=== PATIENT | female | born 1970 | race Two or more races ===

== ENCOUNTER → 2016-05-12 | Outpatient (CLI) | payer OTHER ==
[~2016-05-12] MED LIST: ALBU17IN INH; ANUS2.5C2 TOP; BUSP1TAB PO; DOCU10CA PO; FERR325T3 PO; METO25TAB PO; MOTR200T44 PO; OMEP20CA3 PO; ONDA1TAB15 PO; PRENATAL VITAMIN PO; PULM90IN INH; TYLE325T5 PO; VITAPRTA PO
--- NOTE | 2016-05-12 14:56 | REP ---
LEFT ANKLE SERIES: Four views of the left ankle performed. There is no acute fracture or dislocation. The ankle mortise is anatomic. There is mild inferior and posterior calcaneal spurring. IMPRESSION: No acute fracture or dislocation. Signed by Franki Bliss MD 05/12/2016 04:41 P
== END ==
LOC: M LRY 13:53
PROVIDERS: ATTEND Nurse Practitioner Family
DX: M25.572 Pain in left ankle and joints of left foot (principal)

== ENCOUNTER 2016-07-18 16:11 | Emergency (ER) | payer OTHER ==
[~2016-07-18] VITALS: Ht 160 cm; Wt 73.0 kg
[2016-07-18] MEDS ORDERED: NEXAVAR PO (16:25)
[2016-07-18] MEDS ORDERED: CLAR10CA3 PO (16:25)
[2016-07-18] MEDS ORDERED: BUSP15TA47 PO (16:25)
[2016-07-18] MEDS ORDERED: PROT1TAB2 PO (16:25)
[2016-07-18] MEDS ORDERED: DIFL200T PO (16:25)
[2016-07-18] MEDS ORDERED: ROXI1TAB2 PO (16:25)
[2016-07-18] MEDS ORDERED: K-TA1TAB PO (16:25)
[2016-07-18] MEDS ORDERED: PHEN1SUP6 PO (16:25)
[2016-07-18] MEDS ORDERED: ACYC200CA PO (16:25)
[2016-07-18] MEDS ORDERED: LISI2.5T3 PO (16:25)
[2016-07-18] MEDS ORDERED: LEVO100T5 PO (16:25)
[2016-07-18] MEDS ORDERED: IBUPROFEN 800 MG TAB PO ONE (16:45)
[2016-07-18] MEDS ORDERED: PHENAZOPYRIDINE 100 MG TAB PO ONE (16:45)
[2016-07-18 16:56] LABS: MICROSCOPIC INDICATED? MAN YES (NO)
[2016-07-18 16:57] LABS: CONTROL LINE UCG INT CTR LINE PRESENT
[2016-07-18 16:58] LABS: RBC, URINE 15-20 /hpf (0-3); SQUAMOUS EPITHELIAL CELL URINE SMALL AMOUNT /hpf (SMALL AMT); WBC, URINE 30-40 /hpf (0-3)
[2016-07-18 16:59] LABS: BACTERIA, URINE SMALL AMOUNT; HYALINE CAST, URINE NONE SEEN /lpf (0-1); MICROSCOPIC EXAM UNSPUN
[2016-07-18] MEDS ORDERED: CIPR500T89 PO (17:16)
[2016-07-18] MEDS ORDERED: PYRI200T5 PO (17:16)
[2016-07-18 17:20] VITALS: BP 115/68
[2016-07-18] MEDS ORDERED: CIPROFLOXACIN 500 MG TAB PO ONE (17:30)
== END 2016-07-18 17:32 | disposition home or self-care (01) ==
LOC: M ED 16:48
DX: N30.91 Cystitis, unspecified with hematuria (principal); R51 Headache

== ENCOUNTER → 2016-07-27 | Outpatient (CLI) | payer OTHER ==
[~2016-07-27] MED LIST changes: +ACYC200CA PO; +BUSP15TA47 PO; +CIPR500T89 PO; +CLAR10CA3 PO; +DIFL200T PO; +K-TA1TAB PO; +LEVO100T5 PO; +LISI2.5T3 PO; +NEXAVAR PO; +PHEN1SUP6 PO; +PROT1TAB2 PO; +PYRI200T5 PO; +ROXI1TAB2 PO
== END ==
LOC: M LAB 10:52
PROVIDERS: ATTEND Nurse Practitioner Family
DX: R79.89 Other specified abnormal findings of blood chemistry (principal)

== ENCOUNTER → 2016-07-27 | Outpatient (CLI) | payer OTHER | LOC: M RAD 10:55 | PROVIDERS: ATTEND Nurse Practitioner | DX: M54.9 Dorsalgia, unspecified (principal) ==

== ENCOUNTER 2016-07-29 13:35 | Emergency (ER) | payer OTHER ==
[~2016-07-29] VITALS: Ht 160 cm; Wt 71.4 kg
[~2016-07-29 13:35] MED LIST changes: +CIPR-249 PO; -CIPR500T89 PO; -ONDA1TAB15 PO; +ONDA4TAB5 PO; +PYRI1TAB5 PO; -PYRI200T5 PO
[2016-07-29] MEDS ORDERED: IBUPROFEN 600 MG TAB PO ONE (15:00)
--- NOTE | 2016-07-29 15:20 | REP ---
Right wrist four views: There is no fracture or dislocation. Mineralization joint spaces are normal. There are no calcifications or foreign bodies. Impression: Negative right wrist. Signed by Franki De Dios MD 07/29/2016 03:11 P
[2016-07-29 15:38] VITALS: BP 110/71
== END 2016-07-29 15:59 | disposition home or self-care (01) ==
LOC: M ED 15:43
DX: S63.501A Unspecified sprain of right wrist, initial encounter (principal); X50.1XXA Overexertion from prolonged static or awkward postures, initial encounter; Y92.092 Bedroom in other non-institutional residence as the place of occurrence of the external cause; Y93.89 Activity, other specified; Y99.9 Unspecified external cause status

== ENCOUNTER 2016-08-31 23:03 | Emergency (ER) | payer OTHER ==
[~2016-08-31] VITALS: Ht 160 cm; Wt 70.9 kg
[2016-08-31] MEDS ORDERED: LEVO88TA3 PO (23:24)
[2016-09-01] MEDS ORDERED: NS 1,000 ML IV ONE (02:45)
[2016-09-01 03:18] LABS: BASO % 0.7 % (0.0-1.0); EOS # 0.3 K/mm3 (0.0-0.50); EOS % 4.2 % (0.0-3.0); LARGE UNSTAINED CELL # 0.3 K/mm3 (0.0-0.4); LARGE UNSTAINED CELL % 3.8 % (0.0-4.0); LYMPH # 2.3 K/mm3 (1.5-4.5); LYMPH % 31.5 % (24.0-44.0); MEAN CORPUSCULAR HEMOGLOBIN 35.9 pg (27.0-33.0); MEAN CORPUSCULAR HGB CONC 34.8 g/dl (32.0-36.5); MEAN CORPUSCULAR VOLUME 103.1 fl (80.0-96.0); MONO # 0.9 K/mm3 (0.0-0.8); MONO % 13.8 % (0.0-5.0); PLATELET COUNT, AUTOMATED 165 k/mm3 (150-450); RED CELL DISTRIBUTION WIDTH 13.5 % (11.5-14.5); WHITE BLOOD COUNT 6.4 K/mm3 (4.0-10.0)
[2016-09-01 03:49] LABS: BLOOD UREA NITROGEN 9 MG/DL (7-18); CARBON DIOXIDE LEVEL 27 MEQ/L (21-32); CHLORIDE LEVEL 100 MEQ/L (98-107); CREATININE FOR GFR 0.75 MG/DL (0.55-1.02); GLOMERULAR FILTRATION RATE > 60.0 (>58); GLUCOSE, FASTING 88 MG/DL (70-105)
[2016-09-01 03:56] LABS: SODIUM LEVEL 139 MEQ/L (136-145)
[2016-09-01 03:58] LABS: ANION GAP 12 MEQ/L (8-16)
[2016-09-01] MEDS ORDERED: POTASSIUM CHLORIDE 10 MEQ SR TABLET PO ONE (04:30)
[2016-09-01 04:56] VITALS: BP 114/65
== END 2016-09-01 05:03 | disposition home or self-care (01) ==
LOC: M ED 23:03
DX: R19.7 Diarrhea, unspecified (principal); E87.6 Hypokalemia; K21.9 Gastro-esophageal reflux disease without esophagitis; Z87.891 Personal history of nicotine dependence; Z79.899 Other long term (current) drug therapy

== ENCOUNTER → 2016-09-16 | Outpatient (REF) | payer OTHER ==
[~2016-09-16] MED LIST changes: +LEVO88TA3 PO
== END ==
LOC: M LAB REF 14:40
PROVIDERS: ATTEND Nurse Practitioner
DX: R19.7 Diarrhea, unspecified (principal)

== ENCOUNTER 2016-12-28 19:36 | Emergency (ER) | payer OTHER ==
[~2016-12-28] VITALS: Ht 160 cm; Wt 69.1 kg
[2016-12-28] MEDS ORDERED: SERT50TA PO (19:48)
[2016-12-28] MEDS ORDERED: ZOFR20TA PO (19:48)
[2016-12-28 20:51] LABS: CONTROL LINE UCG INT CTR LINE PRESENT
[2016-12-28] MEDS ORDERED: MACR100C43 PO (21:06)
[2016-12-28 21:12] VITALS: BP 110/63
[2016-12-28] MEDS ORDERED: NITROFURANTOIN (MACROBID) 100 MG CAP PO ONE (21:15)
== END 2016-12-28 21:27 | disposition home or self-care (01) ==
LOC: M ED 19:36
DX: N39.0 Urinary tract infection, site not specified (principal); Z87.891 Personal history of nicotine dependence

== ENCOUNTER 2017-02-19 11:36 | Emergency (ER) | payer OTHER | END 2017-02-19 13:05 | disposition home or self-care (01) | LOC: M ED 11:36 | DX: J20.9 Acute bronchitis, unspecified (principal); I10 Essential (primary) hypertension; K21.9 Gastro-esophageal reflux disease without esophagitis; E03.9 Hypothyroidism, unspecified; M54.9 Dorsalgia, unspecified; F41.9 Anxiety disorder, unspecified; F42.9 Obsessive-compulsive disorder, unspecified; Z87.891 Personal history of nicotine dependence; Z79.899 Other long term (current) drug therapy | CPT/HCPCS: 71046 ==

== ENCOUNTER → 2017-04-22 | Outpatient (CLI) | payer OTHER ==
[2017-04-22 18:07] LABS: THYROID STIMULATING HORMONE 0.026 uIU/ML (0.358-3.740)
[2017-04-22 18:26] LABS: TOTAL 25(OH) VITAMIN D 11.9 NG/ML (30.0-100.0)
== END ==
LOC: M LAB 16:07
DX: E03.9 Hypothyroidism, unspecified (principal)
CPT/HCPCS: 84443

== ENCOUNTER 2017-07-02 20:26 | Emergency (ER) | payer OTHER, MEDICAID ==
[2017-07-02] MEDS: diphenhydrAMINE 25 MG CAP PO (22:53)
== END 2017-07-02 23:00 | disposition home or self-care (01) ==
LOC: M ED 20:26
DX: R59.9 Enlarged lymph nodes, unspecified (principal); S10.86XA Insect bite of other specified part of neck, initial encounter; W57.XXXA Bitten or stung by nonvenomous insect and other nonvenomous arthropods, initial encounter; Y92.9 Unspecified place or not applicable; Y93.9 Activity, unspecified; Y99.9 Unspecified external cause status; J30.2 Other seasonal allergic rhinitis; Z79.899 Other long term (current) drug therapy; Z88.6 Allergy status to analgesic agent
CPT/HCPCS: 99283

== ENCOUNTER → 2017-07-15 | Outpatient (REF) | payer OTHER, MEDICAID ==
[2017-07-15 18:28] LABS: FREE T4 1.27 NG/DL (0.76-1.46); THYROID STIMULATING HORMONE 0.103 uIU/ML (0.358-3.740)
[2017-07-16 10:43] LABS: THYROID PEROXIDASE ANTIBODY < 28.0 U/ML (<60.0)
== END ==
LOC: M LAB REF 17:35
DX: E03.9 Hypothyroidism, unspecified (principal)

== ENCOUNTER → 2017-10-18 | Outpatient (REF) | payer OTHER, MEDICAID ==
[2017-10-18 12:32] LABS: BASO % 0.6 % (0.0-1.0); EOS # 0.2 10^3/uL (0.0-0.50); EOS % 3.3 % (0.0-3.0); HEMATOCRIT 42.8 % (36.0-47.0); HEMOGLOBIN 14.4 g/dl (12.0-15.5); IMMATURE GRANULOCYTE % 0.2 % (0-3.0); LYMPH # 1.3 10^3/uL (1.5-4.5); LYMPH % 20.6 % (24.0-44.0); MEAN CORPUSCULAR HEMOGLOBIN 33.1 pg (27.0-33.0); MEAN CORPUSCULAR HGB CONC 33.6 g/dl (32.0-36.5); MEAN CORPUSCULAR VOLUME 98.4 fl (80.0-96.0); MONO # 0.7 10^3/uL (0.0-0.8); MONO % 10.6 % (0.0-5.0); NEUTROPHILS # 4.1 10^3/uL (1.8-7.7); NEUTROPHILS % 64.7 % (36.0-66.0); PLATELET COUNT, AUTOMATED 243 10^3/uL (150-450); RED BLOOD COUNT 4.35 10^6/uL (4.00-5.40); RED CELL DISTRIBUTION WIDTH 13.1 % (11.5-14.5); WHITE BLOOD COUNT 6.3 10^3/uL (4.0-10.0)
[2017-10-18 13:03] LABS: TOTAL 25(OH) VITAMIN D 21.6 NG/ML (30.0-100.0)
[2017-10-19 01:37] LABS: ESTIMATED AVERAGE GLUCOSE 94 MG/DL (60-110); HEMOGLOBIN A1c 4.9 %
== END ==
LOC: M LAB REF 12:16
DX: R53.83 Other fatigue (principal)

== ENCOUNTER 2017-11-20 17:29 | Emergency (ER) | payer OTHER, MEDICAID ==
[2017-11-20 18:27] LABS: KETONE, URINE AUTO RFX NEGATIVE (NEGATIVE); LEUKOCYTE ESTERASE UR AUTO RFX 3+ (NEGATIVE); MUCUS, URINE RFX SMALL (NEGATIVE); NITRITE, URINE AUTO RFX NEGATIVE (NEGATIVE); RBC, URINE AUTO RFX 53 /HPF (0-3); SPECIFIC GRAVITY UR AUTO RFX 1.016 (1.002-1.035); SQUAM EPITHELIAL CELL UR AURFX 4 /HPF (0-6); WBC, URINE AUTO RFX 133 /HPF (0-3)
[2017-11-20] MEDS: PHENAZOPYRIDINE 100 MG TAB PO (19:23)
[2017-11-20] MEDS: CIPROFLOXACIN 500 MG TAB PO (19:23)
== END 2017-11-20 19:24 | disposition home or self-care (01) ==
LOC: M ED 17:29
DX: N39.0 Urinary tract infection, site not specified (principal); I10 Essential (primary) hypertension; K21.9 Gastro-esophageal reflux disease without esophagitis
CPT/HCPCS: 73630

== ENCOUNTER 2017-12-05 22:21 | Emergency (ER) | payer OTHER ==
[2017-12-05] MEDS: METOCLOPRAMIDE INJ 10MG/2ML VIAL (J2765) IV (23:00)
[2017-12-05] MEDS: NS 1,000 ML IV (23:00)
[2017-12-05 23:33] LABS: BASO % 0.3 % (0.0-1.0); EOS # 0.2 10^3/uL (0.0-0.50); EOS % 1.2 % (0.0-3.0); HEMATOCRIT 52.8 % (36.0-47.0); HEMOGLOBIN 17.7 g/dl (12.0-15.5); IMMATURE GRANULOCYTE % 0.7 % (0-3.0); LYMPH % 15.8 % (24.0-44.0); MEAN CORPUSCULAR HGB CONC 33.5 g/dl (32.0-36.5); MEAN CORPUSCULAR VOLUME 98.5 fl (80.0-96.0); MONO # 0.8 10^3/uL (0.0-0.8); MONO % 5.8 % (0.0-5.0); NEUTROPHILS # 9.8 10^3/uL (1.8-7.7); NEUTROPHILS % 76.2 % (36.0-66.0); PLATELET COUNT, AUTOMATED 297 10^3/uL (150-450); RED BLOOD COUNT 5.36 10^6/uL (4.00-5.40); RED CELL DISTRIBUTION WIDTH 13.3 % (11.5-14.5); WHITE BLOOD COUNT 12.9 10^3/uL (4.0-10.0)
[2017-12-06 00:10] LABS: ALBUMIN 4.2 GM/DL (3.2-5.2); ALBUMIN/GLOBULIN RATIO 0.93 (1.00-1.93); ALKALINE PHOSPHATASE 77 U/L (45-117); ALT/SGPT 33 U/L (12-78); AMYLASE 65 U/L (25-115); ANION GAP 11 MEQ/L (8-16); AST/SGOT 38 U/L (7-37); BILIRUBIN,TOTAL 0.5 MG/DL (0.2-1.0); BLOOD UREA NITROGEN 12 MG/DL (7-18); CALCIUM LEVEL 8.9 MG/DL (8.5-10.1); CARBON DIOXIDE LEVEL 23 MEQ/L (21-32); CHLORIDE LEVEL 104 MEQ/L (98-107); CREATININE FOR GFR 0.82 MG/DL (0.55-1.30); GLOMERULAR FILTRATION RATE > 60.0 (>58); GLUCOSE, FASTING 89 MG/DL (70-100); LIPASE 118 U/L (73-393); POTASSIUM SERUM 3.8 MEQ/L (3.5-5.1); SODIUM LEVEL 138 MEQ/L (136-145); TOTAL PROTEIN 8.7 GM/DL (6.4-8.2)
[2017-12-06 00:45] LABS: APPEARANCE, URINE CLOUDY (CLEAR); BACTERIA, URINE AUTO 1+ (NEGATIVE); BILIRUBIN, URINE AUTO NEGATIVE (NEGATIVE); BLOOD, URINE BLOOD 1+ (NEGATIVE); COLOR, URINE YELLOW (YELLOW); GLUCOSE, URINE (UA) AUTO NEGATIVE (NEGATIVE); KETONE, URINE AUTO NEGATIVE (NEGATIVE); LEUKOCYTE ESTERASE, URINE AUTO 3+ (NEGATIVE); MUCUS, URINE LARGE (NEGATIVE); NITRITE, URINE AUTO NEGATIVE (NEGATIVE); PROTEIN, URINE AUTO 1+ mg/dL (NEGATIVE); RBC, URINE AUTO 9 /HPF (0-3); SQUAMOUS EPITHELIAL CELL UR AU 12 /HPF (0-6); TRANSITIONAL EPITHELIAL AUTO <1 /HPF; UROBILINOGEN, URINE AUTO 0.2 mg/dL (0.0-2.0); WBC, URINE AUTO 100 /HPF (0-3)
[2017-12-06] MEDS: CIPROFLOXACIN 500 MG TAB PO (01:30)
== END 2017-12-06 01:33 | disposition home or self-care (01) ==
LOC: M ED 12-06 01:33
DX: N39.0 Urinary tract infection, site not specified (principal); R11.2 Nausea with vomiting, unspecified; R19.7 Diarrhea, unspecified; I10 Essential (primary) hypertension; Z87.442 Personal history of urinary calculi; Z94.84 Stem cells transplant status; Z88.6 Allergy status to analgesic agent; Z88.2 Allergy status to sulfonamides; J30.2 Other seasonal allergic rhinitis; Z79.899 Other long term (current) drug therapy
CPT/HCPCS: J2765

== ENCOUNTER 2018-05-07 17:21 | Emergency (ER) | payer OTHER ==
[~2018-05-07] VITALS: Ht 157.5 cm; Wt 83.6 kg
[2018-05-07 17:21] VITALS: BP 117/63
[~2018-05-07 17:21] MED LIST changes: +ACYC1CAP20 PO; -ACYC200CA PO; +BENA25CA4 PO; +COMBAER6; +LEVO75TA4 PO; +LISI-1046 PO; -LISI2.5T3 PO; +MACR100C43 PO; +METO1TAB63 PO; -METO25TAB PO; +MORP-38 PO; +REGL10TA6 PO; +SERT-141 PO; +TRIA1CR80 TOP; +ZITHTAB PO; +ZOFR4TAB16 PO; +ZOLO50TA PO
[2018-05-07] MEDS ORDERED: diphenhydrAMINE 50 MG CAP PO ONE (18:00)
[2018-05-07] MEDS ORDERED: diphenhydrAMINE 25 MG CAP As Ordered ONE (18:03)
[2018-05-07] MEDS ORDERED: predniSONE 20 MG TAB PO ONE (18:30)
[2018-05-07] MEDS ORDERED: PRED20TA PO (19:11)
== END 2018-05-07 19:32 | disposition home or self-care (01) ==
LOC: M ED 17:21
DX: L23.89 Allergic contact dermatitis due to other agents (principal); L29.9 Pruritus, unspecified; L50.9 Urticaria, unspecified; I10 Essential (primary) hypertension; J45.909 Unspecified asthma, uncomplicated; E03.9 Hypothyroidism, unspecified; K21.9 Gastro-esophageal reflux disease without esophagitis; Z85.6 Personal history of leukemia; Z79.899 Other long term (current) drug therapy; J30.2 Other seasonal allergic rhinitis; Z88.2 Allergy status to sulfonamides; Z88.6 Allergy status to analgesic agent

== ENCOUNTER 2018-08-06 21:12 | Emergency (ER) | payer OTHER ==
[~2018-08-06] VITALS: Ht 157.5 cm; Wt 88.2 kg
[~2018-08-06 21:12] MED LIST changes: -OMEP20CA3 PO; +OMEP20CA4 PO; +PRED20TA PO
[2018-08-06] MEDS ORDERED: NAPROXEN 250 MG TAB PO ONE (23:30)
[2018-08-07] MEDS ORDERED: NAPR-837 PO (01:01)
[2018-08-07] MEDS ORDERED: CAPS0.022 TOP (01:01)
[2018-08-07 01:25] VITALS: BP 140/72
--- NOTE | 2018-08-07 07:29 | REP ---
Clinical: Right heel pain. Technique: Axial and lateral views of the left calcaneus. Findings: No acute fracture or dislocation. Lateral view demonstrates moderate calcaneal heal spur. No plantar calcifications are identified. Impression: Moderate calcaneal heal spur. Electronically Signed by Brayan Palumbo MD 08/07/2018 07:20 A
== END 2018-08-07 01:27 | disposition home or self-care (01) ==
LOC: M ED 21:12
DX: M72.2 Plantar fascial fibromatosis (principal); M77.32 Calcaneal spur, left foot; I10 Essential (primary) hypertension; J45.909 Unspecified asthma, uncomplicated; K21.9 Gastro-esophageal reflux disease without esophagitis; C95.91 Leukemia, unspecified, in remission; Z87.891 Personal history of nicotine dependence; Z88.2 Allergy status to sulfonamides; Z88.6 Allergy status to analgesic agent; Z79.899 Other long term (current) drug therapy; Z94.84 Stem cells transplant status

== ENCOUNTER → 2018-08-19 | Outpatient (REF) | payer OTHER ==
[~2018-08-19] MED LIST changes: +CAPS0.022 TOP; +NAPR-837 PO
[2018-08-19 19:19] LABS: APPEARANCE, URINE HAZY (CLEAR); BACTERIA, URINE AUTO 1+ (NEGATIVE); BASO # 0.1 10^3/uL (0.0-0.2); BASO % 0.6 % (0.0-1.0); BILIRUBIN, URINE AUTO NEGATIVE (NEGATIVE); BLOOD, URINE BLOOD NEGATIVE (NEGATIVE); COLOR, URINE YELLOW (YELLOW); EOS # 0.1 10^3/uL (0.0-0.50); EOS % 1.7 % (0.0-3.0); GLUCOSE, URINE (UA) AUTO NEGATIVE (NEGATIVE); HEMATOCRIT 44.6 % (36.0-47.0); HEMOGLOBIN 14.5 g/dl (12.0-15.5); KETONE, URINE AUTO NEGATIVE (NEGATIVE); LEUKOCYTE ESTERASE, URINE AUTO 1+ (NEGATIVE); LYMPH % 36.3 % (24.0-44.0); MEAN CORPUSCULAR HEMOGLOBIN 32.6 pg (27.0-33.0); MEAN CORPUSCULAR HGB CONC 32.5 g/dl (32.0-36.5); MEAN CORPUSCULAR VOLUME 100.2 fl (80.0-96.0); MONO # 0.9 10^3/uL (0.0-0.8); MONO % 11.2 % (0.0-5.0); NEUTROPHILS # 4.1 10^3/uL (1.8-7.7); NITRITE, URINE AUTO NEGATIVE (NEGATIVE); PLATELET COUNT, AUTOMATED 204 10^3/uL (150-450); PROTEIN, URINE AUTO NEGATIVE (NEGATIVE); RBC, URINE AUTO 2 /HPF (0-3); RED BLOOD COUNT 4.45 10^6/uL (4.00-5.40); SPECIFIC GRAVITY URINE AUTO 1.016 (1.002-1.035); SQUAMOUS EPITHELIAL CELL UR AU 5 /HPF (0-6); UROBILINOGEN, URINE AUTO 0.2 mg/dL (0.0-2.0); WBC, URINE AUTO 75 /HPF (0-3); WHITE BLOOD COUNT 8.1 10^3/uL (4.0-10.0)
[2018-08-19 19:27] LABS: ALBUMIN 4.1 GM/DL (3.2-5.2); ALT/SGPT 27 U/L (12-78); BILIRUBIN,TOTAL 0.5 MG/DL (0.2-1.0); BLOOD UREA NITROGEN 13 MG/DL (7-18); CALCIUM LEVEL 8.8 MG/DL (8.5-10.1); CARBON DIOXIDE LEVEL 27 MEQ/L (21-32); CHLORIDE LEVEL 104 MEQ/L (98-107); CHOLESTEROL LEVEL 257 MG/DL (<200); CHOLESTEROL RISK RATIO 6.425 (<5); CREATININE FOR GFR 0.85 MG/DL (0.55-1.30); FREE T4 0.97 NG/DL (0.76-1.46); GLOMERULAR FILTRATION RATE > 60.0 (>58); GLUCOSE, FASTING 83 MG/DL (70-100); HDL CHOLESTEROL 40 MG/DL (>40); NON-HDL-C 217 MG/DL; POTASSIUM SERUM 4.2 MEQ/L (3.5-5.1); SODIUM LEVEL 140 MEQ/L (136-145); THYROID STIMULATING HORMONE 0.326 uIU/ML (0.358-3.740); TRIGLYCERIDES LEVEL 455 MG/DL (<150)
[2018-08-19 19:28] LABS: TOTAL 25(OH) VITAMIN D 19.7 NG/ML (30.0-100.0); VITAMIN B12 LEVEL 369 PG/ML
[2018-08-19 19:29] LABS: FOLATE 9.8 NG/ML
[2018-08-19 20:30] LABS: HEMOGLOBIN A1c 5.6 %
[2018-08-23 00:06] LABS: Lyme Disease IgG/IgM Antibodie <0.91 ISR (0.00-0.90); Lyme Disease IgM Ab Quantitati <0.80 index (0.00-0.79)
== END ==
LOC: M LAB REF 18:40
PROVIDERS: ATTEND Family Medicine
DX: R20.2 Paresthesia of skin (principal); Z13.228 Encounter for screening for other metabolic disorders

== ENCOUNTER 2018-11-06 13:03 | Emergency (ER) | payer OTHER ==
[~2018-11-06] VITALS: Ht 157.5 cm; Wt 84.6 kg
[~2018-11-06 13:03] MED LIST changes: -MORP-38 PO; +MORP-69 PO; +OMEP1CAP73 PO; -OMEP20CA4 PO; +ONDA-83 PO; -ONDA4TAB5 PO
[2018-11-06] MEDS ORDERED: KETO10TAB PO (15:19)
[2018-11-06] MEDS ORDERED: ROBA750T4 PO (15:19)
[2018-11-06] MEDS ORDERED: CLEO300C2 PO (15:19)
[2018-11-06 15:34] VITALS: BP 147/86
== END 2018-11-06 15:35 | disposition home or self-care (01) ==
LOC: M ED 13:03
DX: L08.9 Local infection of the skin and subcutaneous tissue, unspecified (principal); S10.96XA Insect bite of unspecified part of neck, initial encounter; W57.XXXA Bitten or stung by nonvenomous insect and other nonvenomous arthropods, initial encounter; M62.838 Other muscle spasm; Z79.899 Other long term (current) drug therapy; Z88.2 Allergy status to sulfonamides; Z88.6 Allergy status to analgesic agent

== ENCOUNTER 2018-12-08 15:31 | Emergency (ER) | payer OTHER ==
[~2018-12-08] VITALS: Ht 160 cm; Wt 87.7 kg
[2018-12-08 15:31] VITALS: BP 125/89
[~2018-12-08 15:31] MED LIST changes: +CLEO300C2 PO; +KETO10TAB PO; -OMEP1CAP73 PO; +OMEP20CA4 PO; -ONDA-83 PO; +ONDA4TAB5 PO; +ROBA750T4 PO
[2018-12-08] MEDS ORDERED: LORA-674 PO (15:37)
[2018-12-08 15:57] LABS: BASO # 0.1 10^3/uL (0.0-0.2); BASO % 0.9 % (0.0-1.0); EOS # 0.2 10^3/uL (0.0-0.5); EOS % 2.6 % (0.0-3.0); HEMATOCRIT 44.3 % (36.0-47.0); HEMOGLOBIN 14.7 g/dl (12.0-15.5); LYMPH # 2.3 10^3/uL (1.5-5.0); LYMPH % 28.5 % (24.0-44.0); MEAN CORPUSCULAR HEMOGLOBIN 32.2 pg (27.0-33.0); MEAN CORPUSCULAR HGB CONC 33.2 g/dl (32.0-36.5); MEAN CORPUSCULAR VOLUME 96.9 fl (80.0-96.0); MONO # 0.9 10^3/uL (0.0-0.8); MONO % 10.9 % (0.0-5.0); NEUTROPHILS # 4.6 10^3/uL (1.5-8.5); NEUTROPHILS % 56.5 % (36.0-66.0); PLATELET COUNT, AUTOMATED 238 10^3/uL (150-450); RED BLOOD COUNT 4.57 10^6/uL (4.00-5.40); WHITE BLOOD COUNT 8.1 10^3/uL (4.0-10.0)
[2018-12-08] MEDS ORDERED: ACETAMINOPHEN 500 MG TAB PO ONE (16:15)
[2018-12-08] MEDS ORDERED: AUGMENTIN 875 MG TAB PO ONE (16:15)
[2018-12-08 16:20] LABS: ALT/SGPT 21 U/L (12-78); BILIRUBIN,TOTAL 0.6 MG/DL (0.2-1.0); BLOOD UREA NITROGEN 13 MG/DL (7-18); CALCIUM LEVEL 9.6 MG/DL (8.5-10.1); CARBON DIOXIDE LEVEL 30 MEQ/L (21-32); CHLORIDE LEVEL 102 MEQ/L (98-107); CREATININE FOR GFR 0.91 MG/DL (0.55-1.30); GLOMERULAR FILTRATION RATE > 60.0 (>58); GLUCOSE, FASTING 128 MG/DL (70-100); POTASSIUM SERUM 4.3 MEQ/L (3.5-5.1); SODIUM LEVEL 138 MEQ/L (136-145); TOTAL PROTEIN 7.3 GM/DL (6.4-8.2)
[2018-12-08] MEDS ORDERED: OXYMETAZOLINE NASAL SPRAY (AFRIN) ONE (16:30)
[2018-12-08] MEDS ORDERED: AFRI0.058 (16:41)
[2018-12-08] MEDS ORDERED: AUGM875T28 PO (16:41)
--- NOTE | 2018-12-08 21:44 | ECGEPIP ---
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
== END 2018-12-08 16:47 | disposition home or self-care (01) ==
LOC: M ED 15:31
DX: H66.93 Otitis media, unspecified, bilateral (principal); R42 Dizziness and giddiness; I10 Essential (primary) hypertension; J45.909 Unspecified asthma, uncomplicated; K21.9 Gastro-esophageal reflux disease without esophagitis; E03.9 Hypothyroidism, unspecified; F41.9 Anxiety disorder, unspecified; F32.9 Major depressive disorder, single episode, unspecified; F42.9 Obsessive-compulsive disorder, unspecified; Z88.2 Allergy status to sulfonamides; Z88.6 Allergy status to analgesic agent; Z79.899 Other long term (current) drug therapy

== ENCOUNTER 2019-02-18 14:12 | Emergency (ER) | payer OTHER ==
[~2019-02-18] VITALS: Ht 157.5 cm; Wt 82.7 kg
[~2019-02-18 14:12] MED LIST changes: +AFRI0.058; +AUGM875T28 PO; +LORA-674 PO; +OMEP1CAP73 PO; -OMEP20CA4 PO; +ONDA-83 PO; -ONDA4TAB5 PO
[2019-02-18 14:46] LABS: BASO # 0.1 10^3/uL (0.0-0.2); BASO % 0.6 % (0.0-1.0); EOS # 0.2 10^3/uL (0.0-0.5); EOS % 2.7 % (0.0-3.0); HEMATOCRIT 49.3 % (36.0-47.0); HEMOGLOBIN 15.8 g/dl (12.0-15.5); LYMPH # 2.8 10^3/uL (1.5-5.0); LYMPH % 36.7 % (24.0-44.0); MEAN CORPUSCULAR HEMOGLOBIN 31.5 pg (27.0-33.0); MEAN CORPUSCULAR VOLUME 98.2 fl (80.0-96.0); MONO # 0.7 10^3/uL (0.0-0.8); MONO % 9.6 % (0.0-5.0); NEUTROPHILS # 3.9 10^3/uL (1.5-8.5); NEUTROPHILS % 49.9 % (36.0-66.0); PLATELET COUNT, AUTOMATED 250 10^3/uL (150-450); RED BLOOD COUNT 5.02 10^6/uL (4.00-5.40); WHITE BLOOD COUNT 7.7 10^3/uL (4.0-10.0)
--- NOTE | 2019-02-18 14:52 | REP ---
CHEST, SINGLE VIEW: There is no evidence of acute infiltrate. No pleural effusion is seen. The heart is normal in size. The mediastinal silhouette is unremarkable. The visualized osseous structures are intact. IMPRESSION: No acute pulmonary disease. Electronically Signed by Franki Bliss MD 02/18/2019 04:07 P
[2019-02-18 15:20] LABS: CK-MB VALUE MASS 1.3 NG/ML (<3.6); CPK CREATINE PHOSPHOKINASE 181 U/L (26-192); MB/CK RELATIVE INDEX 0.72 (< OR =4); THYROID STIMULATING HORMONE 0.578 uIU/ML (0.358-3.740); TROPONIN I < 0.02 NG/ML (< 0.10)
[2019-02-18 17:58] LABS: CK-MB VALUE MASS < 1.0 NG/ML (<3.6); CPK CREATINE PHOSPHOKINASE 150 U/L (26-192); MB/CK RELATIVE INDEX 0.67 (< OR =4); TROPONIN I < 0.02 NG/ML (< 0.10)
[2019-02-18] MEDS ORDERED: PANTOPRAZOLE 40MG TAB (PROTONIX) PO ONE (19:00)
[2019-02-18] MEDS ORDERED: GI COCKTAIL 50ML BTL(HYOSCYAMINE/MAALOX/LIDOCAINE VISCOUS)(1:3:1) PO ONE (19:00)
[2019-02-18 19:16] VITALS: BP 97/59
[2019-02-18 19:22] LABS: ALBUMIN 3.7 GM/DL (3.2-5.2); ALT/SGPT 27 U/L (12-78); BILIRUBIN,DIRECT 0.1 MG/DL (0.0-0.2); BILIRUBIN,TOTAL 0.7 MG/DL (0.2-1.0); LIPASE 147 U/L (73-393); TOTAL PROTEIN 7.5 GM/DL (6.4-8.2)
--- NOTE | 2019-02-19 20:33 | ECGEPIP ---
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
--- NOTE | 2019-02-19 20:34 | ECGEPIP ---
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
== END 2019-02-18 20:25 | disposition home or self-care (01) ==
LOC: M ED 14:12
DX: R07.89 Other chest pain (principal); I10 Essential (primary) hypertension; K21.9 Gastro-esophageal reflux disease without esophagitis; I47.1 Supraventricular tachycardia; Z79.899 Other long term (current) drug therapy; Z79.890 Hormone replacement therapy; Z88.1 Allergy status to other antibiotic agents; Z88.2 Allergy status to sulfonamides; Z88.8 Allergy status to other drugs, medicaments and biological substances; J30.2 Other seasonal allergic rhinitis; Z87.891 Personal history of nicotine dependence

== ENCOUNTER 2019-11-21 07:50 | Emergency (ER) | payer OTHER ==
[~2019-11-21] VITALS: Ht 160 cm; Wt 97.3 kg
[~2019-11-21 07:50] MED LIST changes: -LISI-1046 PO; +LISI2.5T2 PO
[2019-11-21] MEDS ORDERED: BUSP15TA47 PO (08:08)
[2019-11-21] MEDS ORDERED: ZOLO100T PO (08:08)
[2019-11-21] MEDS ORDERED: HYDR-3363 (08:08)
[2019-11-21] MEDS ORDERED: LORA-674 (08:08)
[2019-11-21] MEDS ORDERED: D 50CAP2 (08:08)
[2019-11-21 08:51] LABS: BASO # 0.1 10^3/uL (0.0-0.2); BASO % 0.3 % (0.0-1.0); EOS # 0.2 10^3/uL (0.0-0.5); EOS % 1.3 % (0.0-3.0); HEMATOCRIT 43.8 % (36.0-47.0); HEMOGLOBIN 14.5 g/dl (12.0-15.5); LYMPH # 1.7 10^3/uL (1.5-5.0); LYMPH % 10.1 % (24.0-44.0); MEAN CORPUSCULAR HEMOGLOBIN 31.7 pg (27.0-33.0); MEAN CORPUSCULAR HGB CONC 33.1 g/dl (32.0-36.5); MEAN CORPUSCULAR VOLUME 95.6 fl (80.0-96.0); MONO # 1.8 10^3/uL (0.0-0.8); MONO % 10.6 % (0.0-5.0); NEUTROPHILS # 13.2 10^3/uL (1.5-8.5); NEUTROPHILS % 76.8 % (36.0-66.0); PLATELET COUNT, AUTOMATED 216 10^3/uL (150-450); RED BLOOD COUNT 4.58 10^6/uL (4.00-5.40); WHITE BLOOD COUNT 17.1 10^3/uL (4.0-10.0)
[2019-11-21 09:25] LABS: ALBUMIN 3.6 GM/DL (3.2-5.2); ALT/SGPT 13 U/L (12-78); BILIRUBIN,DIRECT < 0.1 MG/DL (0.0-0.2); BILIRUBIN,TOTAL 0.4 MG/DL (0.2-1.0); BLOOD UREA NITROGEN 10 MG/DL (7-18); CARBON DIOXIDE LEVEL 27 MEQ/L (21-32); CHLORIDE LEVEL 104 MEQ/L (98-107); CREATININE FOR GFR 0.89 MG/DL (0.55-1.30); GLOMERULAR FILTRATION RATE > 60.0 (>58); GLUCOSE, FASTING 121 MG/DL (70-100); LIPASE 148 U/L (73-393); POTASSIUM SERUM 4.2 MEQ/L (3.5-5.1); SODIUM LEVEL 138 MEQ/L (136-145); TOTAL PROTEIN 7.1 GM/DL (6.4-8.2)
--- NOTE | 2019-11-21 10:24 | REPVR ---
PROCEDURE INFORMATION: Exam: CT Abdomen And Pelvis Without Contrast Exam date and time: 11/21/2019 9:33 AM Age: 48 years old Clinical indication: Abdominal pain; Flank; Left; Additional info: L flank pain, urinary freq/urgency, R/O stone vs pyelo TECHNIQUE: Imaging protocol: Computed tomography of the abdomen and pelvis without contrast. Radiation optimization: All CT scans at this facility use at least one of these dose optimization techniques: automated exposure control; mA and/or kV adjustment per patient size (includes targeted exams where dose is matched to clinical indication); or iterative reconstruction. COMPARISON: CR Spine. Lumbosacral, complete 07/27/2016 11:23 AM FINDINGS: Liver: Diffuse fatty infiltration of the liver is present, with small patchy areas of focal fatty sparing around the gallbladder fossa. Gallbladder and bile ducts: Cholelithiasis is present, with no CT evidence of acute cholecystitis. The biliary ducts appear normal additionally. Pancreas: Normal. No ductal dilation. Spleen: Normal. No splenomegaly. Adrenals: Normal. No mass. Kidneys and ureters: Mild left obstructive uropathy is present with small 1-2 mm-sized proximal intraureteral calculi seen on image 69 of series 201 and questionably on images 73-76 of series 201, all of which are at the level of the mid-upper L4 vertebral body. The calculi may be at least partially-obstructing. No overt signs of acute pyelonephritis although this study is limited in this regard because of the lack of IV contrast. Stomach and bowel: Unremarkable. No obstruction. No mucosal thickening. Appendix: No evidence of appendicitis. Intraperitoneal space: Unremarkable. No free air. No significant fluid collection. Vasculature: Unremarkable. No abdominal aortic aneurysm. Lymph nodes: Unremarkable. No enlarged lymph nodes. Urinary bladder: The urinary bladder appears normal. Reproductive: An IUD is present within the uterus in apparent normal position. Bones/joints: Mild chronic degenerative discovertebral disease with endplate osteophytosis, diminished disc height and vacuum disc phenomenon is seen in the lumbar spine at L5/S1. Soft tissues: Unremarkable. IMPRESSION: 1. Mild left obstructive uropathy is present with small 1-2 mm-sized proximal intraureteral calculi seen on image 69 of series 201 and questionably on images 73-76 of series 201, all of which are at the level of the mid-upper L4 vertebral body. The calculi may be at least partially-obstructing. 2. No overt signs of acute pyelonephritis although this study is limited in this regard because of the lack of IV contrast. 3. The urinary bladder appears normal. 4. Cholelithiasis is present, with no CT evidence of acute cholecystitis. The biliary ducts appear normal additionally. 5. Diffuse fatty infiltration of the liver is present, with small patchy areas of focal fatty sparing around the gallbladder fossa. 6. Mild chronic degenerative discovertebral disease with endplate osteophytosis, diminished disc height and vacuum disc phenomenon is seen in the lumbar spine at L5/S1. 7. An IUD is present within the uterus in apparent normal position. Electronically signed by: Jonathan Valdez On 11/21/2019 10:24:21 AM
[2019-11-21 10:53] LABS: CHLAMYDIA DNA AMPLIFICATION NEGATIVE (NEGATIVE); GC DNA AMPLIFICATION NEGATIVE (NEGATIVE)
[2019-11-21] MEDS ORDERED: ACETAMINOPHEN 325 MG TAB PO ONE (11:15)
[2019-11-21] MEDS ORDERED: FLOM0.4C39 PO (11:16)
[2019-11-21 11:18] LABS: HEPATITIS B SURFACE ANTIBODY POSITIVE (POSITIVE)
[2019-11-21] MEDS ORDERED: MACR100C43 PO (11:20)
[2019-11-21] MEDS ORDERED: PYRI1TAB5 PO (11:22)
[2019-11-21 11:29] LABS: HEPATITIS B SURFACE ANTIGEN NEGATIVE (NEGATIVE)
[2019-11-21 11:57] LABS: HEPATITIS C VIRUS ABY INDEX 0.1 INDEX (<0.8)
[2019-11-21 11:58] LABS: HIV 1&2 SCREEN CENTAUR NEGATIVE (NEGATIVE)
[2019-11-21] MEDS ORDERED: LISINOPRIL *2.5 MG* TAB PO ONE (12:00)
[2019-11-21 12:33] VITALS: BP 142/78
== END 2019-11-21 12:37 | disposition home or self-care (01) ==
LOC: M ED 07:50
DX: N20.1 Calculus of ureter (principal); N23 Unspecified renal colic; K76.0 Fatty (change of) liver, not elsewhere classified; D72.829 Elevated white blood cell count, unspecified; I10 Essential (primary) hypertension; F17.200 Nicotine dependence, unspecified, uncomplicated; E03.9 Hypothyroidism, unspecified; Z88.1 Allergy status to other antibiotic agents; Z88.2 Allergy status to sulfonamides; Z88.6 Allergy status to analgesic agent; Z86.32 Personal history of gestational diabetes; Z97.5 Presence of (intrauterine) contraceptive device

== ENCOUNTER 2020-04-11 19:25 | Emergency (ER) | payer OTHER ==
[~2020-04-11] VITALS: Ht 160 cm; Wt 99.0 kg
[~2020-04-11 19:25] MED LIST changes: +D 50CAP2; +FLOM0.4C39 PO; +HYDR-3363; +LORA-674; +ZOLO100T PO
[2020-04-11 21:04] VITALS: BP 158/88
== END 2020-04-11 21:05 | disposition home or self-care (01) ==
LOC: M ED 19:25
DX: Z11.52 Encounter for screening for COVID-19 (principal); Z20.822 Contact with and (suspected) exposure to COVID-19; J45.909 Unspecified asthma, uncomplicated; I10 Essential (primary) hypertension; Z79.899 Other long term (current) drug therapy; Z88.1 Allergy status to other antibiotic agents; Z88.2 Allergy status to sulfonamides; Z88.8 Allergy status to other drugs, medicaments and biological substances; F17.210 Nicotine dependence, cigarettes, uncomplicated
CPT/HCPCS: 99283; U0003

== ENCOUNTER 2020-09-21 13:49 | Emergency (ER) | payer OTHER ==
[~2020-09-21] VITALS: Ht 160 cm; Wt 91.1 kg
[~2020-09-21 13:49] MED LIST changes: -LISI2.5T2 PO; +LISI2.5T9 PO
--- NOTE | 2020-09-21 15:33 | REP ---
INDICATION: pain with flexion after hyperextension injury yesterday. COMPARISON: None. TECHNIQUE: Axial scans sagittal and coronal reconstructions. FINDINGS: No fracture or dislocation. Alignment normal. Disc spaces well maintained. Uncovertebral joints normal. No foraminal encroachment or spinal stenosis. IMPRESSION: No fracture or malalignment. <Electronically signed by Keo Aguero > 09/21/20 [id number]
[2020-09-21] MEDS ORDERED: ACETAMINOPHEN 500 MG TAB PO ONE (15:35)
[2020-09-21] MEDS ORDERED: LIDOCAINE 5% (LIDODERM) PATCH TD ONE ×2 (15:35→15:40)
[2020-09-21 15:39] VITALS: BP 155/91
[2020-09-21] MEDS ORDERED: **NOTE PATIENT COMMENT** MISC XX SCH (21:00)
== END 2020-09-21 16:10 | disposition home or self-care (01) ==
LOC: M ED 13:49
DX: S19.89XA Other specified injuries of other specified part of neck, initial encounter (principal); W50.0XXA Accidental hit or strike by another person, initial encounter; Y92.838 Other recreation area as the place of occurrence of the external cause; I10 Essential (primary) hypertension; Z85.6 Personal history of leukemia; Z79.899 Other long term (current) drug therapy; Z88.1 Allergy status to other antibiotic agents; Z88.2 Allergy status to sulfonamides; Z88.8 Allergy status to other drugs, medicaments and biological substances; J30.2 Other seasonal allergic rhinitis

== ENCOUNTER 2021-11-07 07:21 | Emergency (ER) | payer OTHER ==
[~2021-11-07] VITALS: Ht 160 cm; Wt 89.5 kg
[~2021-11-07 07:21] MED LIST changes: -AFRI0.058; +OXYM15SP2
[2021-11-07] MEDS ORDERED: OXYB5TAB10 (07:35)
[2021-11-07] MEDS ORDERED: NICOINH (07:35)
[2021-11-07] MEDS ORDERED: INCR1INH (07:35)
[2021-11-07] MEDS ORDERED: METOPROLOL 5 MG/5 ML VIAL IV STA (07:52)
[2021-11-07 08:10] LABS: BASO # 0.1 10^3/uL (0.0-0.2); BASO % 0.5 % (0.0-1.0); EOS # 0.2 10^3/uL (0.0-0.5); EOS % 1.4 % (0.0-3.0); HEMATOCRIT 46.3 % (36.0-47.0); HEMOGLOBIN 15.2 g/dl (12.0-15.5); LYMPH # 2.8 10^3/uL (1.5-5.0); LYMPH % 24.3 % (24.0-44.0); MEAN CORPUSCULAR HEMOGLOBIN 30.9 pg (27.0-33.0); MEAN CORPUSCULAR HGB CONC 32.8 g/dl (32.0-36.5); MEAN CORPUSCULAR VOLUME 94.1 fl (80.0-96.0); MONO # 1.1 10^3/uL (0.0-0.8); MONO % 9.9 % (2.0-8.0); NEUTROPHILS # 7.4 10^3/uL (1.5-8.5); NEUTROPHILS % 63.5 % (36.0-66.0); PLATELET COUNT, AUTOMATED 234 10^3/uL (150-450); RED BLOOD COUNT 4.92 10^6/uL (4.00-5.40); WHITE BLOOD COUNT 11.6 10^3/uL (4.0-10.0)
[2021-11-07 08:30] LABS: INR 1.04
[2021-11-07 08:31] LABS: PARTIAL THROMBOPLASTIN TIME 30.8 SECONDS (25.9-37.0)
[2021-11-07 08:41] LABS: RSV AMPLIFICATION NEGATIVE (NEGATIVE)
[2021-11-07 08:46] LABS: ALBUMIN 3.6 GM/DL (3.2-5.2); ALT/SGPT 14 U/L (12-78); BILIRUBIN,DIRECT 0.3 MG/DL (0.0-0.2); BILIRUBIN,TOTAL 0.9 MG/DL (0.2-1.0); BLOOD UREA NITROGEN 15 MG/DL (7-18); CALCIUM LEVEL 9.4 MG/DL (8.5-10.1); CARBON DIOXIDE LEVEL 25 MEQ/L (21-32); CHLORIDE LEVEL 102 MEQ/L (98-107); CREATININE FOR GFR 0.81 MG/DL (0.55-1.30); FREE T4 1.24 NG/DL (0.76-1.46); GLOMERULAR FILTRATION RATE > 60.0 (>58); GLUCOSE, FASTING 108 MG/DL (70-100); LIPASE 135 U/L (73-393); POTASSIUM SERUM 3.9 MEQ/L (3.5-5.1); SODIUM LEVEL 135 MEQ/L (136-145)
[2021-11-07] MEDS ORDERED: ISOVUE-370 76% 100ML VIAL As Ordered ONE (08:58)
[2021-11-07] MEDS ORDERED: LISINOPRIL *2.5 MG* TAB PO ONE (09:25)
[2021-11-07 10:31] VITALS: BP 143/90
[2021-11-07] MEDS ORDERED: IPRATROPIUM 0.5MG/ALBUTEROL 2.5MG INH SOL UD 3ML (DUONEB) NEB ONE (10:50)
[2021-11-07 14:00] VITALS: BP 132/80
== END 2021-11-07 14:14 | disposition home or self-care (01) ==
LOC: EDBD 07:21 → M ED 07:21
DX: J06.9 Acute upper respiratory infection, unspecified (principal); E03.9 Hypothyroidism, unspecified; K76.0 Fatty (change of) liver, not elsewhere classified; J45.909 Unspecified asthma, uncomplicated; K21.9 Gastro-esophageal reflux disease without esophagitis; F17.200 Nicotine dependence, unspecified, uncomplicated; I10 Essential (primary) hypertension; Z88.1 Allergy status to other antibiotic agents; Z88.5 Allergy status to narcotic agent; Z88.8 Allergy status to other drugs, medicaments and biological substances
CPT/HCPCS: 71045; 71275; 80048; 80076; 83690; 84439; 84443; 85025; 85610; 85730; 87631; 93005; 93041; 94640; 94760; 99285; Q9967

== ENCOUNTER 2022-01-08 20:50 | Inpatient (IN) | payer OTHER ==
[~2022-01-08] VITALS: Ht 160 cm; Wt 92.0 kg
[~2022-01-08 20:50] MED LIST changes: +INCR1INH; +NICOINH; +OXYB5TAB10
[2022-01-08] MEDS ORDERED: DEXTROSE 50% 50ML VIAL As Ordered ONE (20:53)
[2022-01-08] MEDS ORDERED: ADENOSINE 6MG 2ML INJECTION As Ordered ONE (20:59)
[2022-01-08] MEDS ORDERED: ADENOSINE 6MG 2ML INJECTION IV STA ×2 (21:00→21:09)
[2022-01-08] MEDS ORDERED: NS 1,000 ML IV ONE (21:10)
[2022-01-08 21:14] LABS: BASO # 0.1 10^3/uL (0.0-0.2); BASO % 0.7 % (0.0-1.0); HEMATOCRIT 55.5 % (36.0-47.0); HEMOGLOBIN 16.2 g/dl (12.0-15.5); LYMPH # 1.1 10^3/uL (1.5-5.0); LYMPH % 13.1 % (24.0-44.0); MEAN CORPUSCULAR HEMOGLOBIN 30.6 pg (27.0-33.0); MEAN CORPUSCULAR HGB CONC 29.2 g/dl (32.0-36.5); MEAN CORPUSCULAR VOLUME 104.9 fl (80.0-96.0); MONO # 0.6 10^3/uL (0.0-0.8); MONO % 7.1 % (2.0-8.0); NEUTROPHILS # 6.4 10^3/uL (1.5-8.5); NEUTROPHILS % 76.8 % (36.0-66.0); PLATELET COUNT, AUTOMATED 195 10^3/uL (150-450); RED BLOOD COUNT 5.29 10^6/uL (4.00-5.40); WHITE BLOOD COUNT 8.3 10^3/uL (4.0-10.0)
[2022-01-08] MEDS ORDERED: AMIODARONE HCL 150 MG in IV 1 EA IV STA ×2 (21:22→22:01)
[2022-01-08] MEDS ORDERED: AMIODARONE HCL 150 MG/100 ML PREMIXED BAG (NEXTERONE) As Ordered ONE (21:24)
[2022-01-08 22:10] LABS: CK-MB VALUE MASS 3.8 NG/ML (<3.6)
[2022-01-08] MEDS ORDERED: FUROSEMIDE 40MG/4ML VIAL (J1940) IV ONE (22:10)
[2022-01-08 22:11] LABS: MAGNESIUM LEVEL 2.2 MG/DL (1.8-2.4)
[2022-01-08 22:12] LABS: BILIRUBIN,DIRECT 2.1 MG/DL (<0.4)
[2022-01-08 22:15] LABS: THYROID STIMULATING HORMONE 1.182 uIU/ML (0.55-4.78)
[2022-01-08 22:18] LABS: ALBUMIN 3.2 G/DL (3.2-5.2); ALKALINE PHOSPHATASE 126 U/L (46-116); ALT/SGPT 33 U/L (7.0-40); AST/SGOT 130 U/L (<34); BILIRUBIN,TOTAL 3.3 MG/DL (0.3-1.2); BLOOD UREA NITROGEN 21 MG/DL (9-23); CALCIUM LEVEL 8.8 MG/DL (8.5-10.1); CARBON DIOXIDE LEVEL 12 MMOL/L (20-31); CHLORIDE LEVEL 105 MMOL/L (98-107); CPK CREATINE PHOSPHOKINASE 77 U/L (34-145); CREATININE FOR GFR 0.88 MG/DL (0.55-1.30); GLOMERULAR FILTRATION RATE > 60.0 (>58); GLUCOSE, FASTING 151 MG/DL (60-100); MB/CK RELATIVE INDEX 4.93 (< OR =4); PHOSPHORUS LEVEL 6.7 MG/DL (2.5-4.9); POTASSIUM SERUM 3.9 MMOL/L (3.5-5.1); SODIUM LEVEL 142 MMOL/L (136-145); TOTAL PROTEIN 6.2 G/DL (5.7-8.2)
[2022-01-08] MEDS ORDERED: LORazepam 2 MG/ML VIAL IV STA (22:26)
[2022-01-08] MEDS ORDERED: ISOVUE-370 76% 100ML VIAL As Ordered ONE (22:26)
[2022-01-08] MEDS ORDERED: EPINEPHrine 1MG/10ML SYRINGE 1.5IN As Ordered ONE ×2 (22:46→23:02)
[2022-01-08] MEDS ORDERED: DOPamine 400 MG/500 ML BAG IN D5W (800MCG/ML) As Ordered ONE (23:03)
[2022-01-08] MEDS ORDERED: DOPamine HCL 800 MG in IV 1 EA IV SCH (23:20)
[2022-01-08] MEDS ORDERED: SODIUM BICARBONATE 8.4% INJ 50ML SYRINGE IV STA ×2 (23:32)
[2022-01-08] MEDS ORDERED: SODIUM BICARBONATE 100 MEQ in D5W 1,000 ML IV SCH (23:35)
[2022-01-08] MEDS: NOREPINEPHRINE 4MG IN D5 250ML 4 MG in IV 1 EA IV SCH ×2 (23:40)
[2022-01-08] MEDS ORDERED: DOPamine HCL 400 MG in IV 1 EA IV SCH (23:55)
[2022-01-09] VITALS (7 sets, daily range): BP systolic 94–187; BP diastolic 46–90
[2022-01-09 01:24] LABS: ABG O2 SATURATION 88.9 % (95.0-99.0); ABG PARTIAL PRESSURE CO2 51.7 mmHg (35.0-45.0); ABG PARTIAL PRESSURE O2 91.1 mmHg (75.0-100.0); ABG STANDARD HCO3 6.8 MEQ/L (22.0-26.0); ABG TOTAL CO2 9.6 MEQ/L (22.0-29.0)
[2022-01-09 01:25] LABS: ABG pH (ARTERIAL) 6.808 UNITS (7.350-7.450)
[2022-01-09 01:35] LABS: RSV AMPLIFICATION NEGATIVE (NEGATIVE)
[2022-01-09] MEDS: NOREPINEPHRINE 4MG IN D5 250ML 4 MG in IV 1 EA IV SCH ×2 (01:50)
[2022-01-09] MEDS ORDERED: NOREPINEPHRINE 4MG IN D5 250ML 4 MG in IV 1 EA IV SCH ×2 (02:00)
[2022-01-09] MEDS ORDERED: MIDAZOLAM 100MG/100ML-0.9%NACL 100 MG in IV 1 EA IV SCH (02:05)
[2022-01-09] MEDS ORDERED: FENTANYL DRIP LOCK BOX KEY 1 EACH XX PRN (02:10)
[2022-01-09] MEDS ORDERED: fentaNYL CITRATE/NaCl 1,000 MCG in IV 1 EA IV SCH (03:00)
[2022-01-09] MEDS ORDERED: HYDROCORTISONE 100 MG/2 ML VIAL (J1720 PER 1) IV SCH (03:00)
[2022-01-09] MEDS ORDERED: PIPERACILLIN/TAZOBACTAM SOD 4.5 GM in D5W MINI-BAG PLUS 50 ML IV SCH (03:00)
[2022-01-09] MEDS ORDERED: DOBUTamine HCL 500,000 MCG in IV 1 EA IV SCH (03:00)
[2022-01-09] MEDS ORDERED: DOPamine 400 MG/500 ML BAG IN D5W (800MCG/ML) As Ordered ONE (03:17)
[2022-01-09] MEDS ORDERED: DOPamine HCL 400 MG in IV 1 EA IV SCH (03:30)
[2022-01-09] MEDS ORDERED: VANCOMYCIN HCL 1,000 MG, VIAL MATE ADAPTER 1 EACH in NS 250 ML IV SCH (04:00)
[2022-01-09] MEDS ORDERED: SODIUM BICARBONATE 150 MEQ in D5W 1,000 ML IV SCH (04:00)
[2022-01-09] MEDS ORDERED: NICOINH INH (04:11)
[2022-01-09] MEDS ORDERED: HYDR-3363 PO (04:11)
[2022-01-09] MEDS ORDERED: INCR1INH INH (04:11)
[2022-01-09] MEDS ORDERED: ZOLO100T PO (04:11)
[2022-01-09] MEDS ORDERED: MELO15TA28 PO (04:11)
[2022-01-09] MEDS ORDERED: LORA-622 PO (04:11)
[2022-01-09] MEDS ORDERED: ALBU8.5H INH (04:11)
[2022-01-09] MEDS ORDERED: NYST1POW9 TOP (04:11)
[2022-01-09] MEDS ORDERED: OXYB5TAB10 PO (04:11)
[2022-01-09] MEDS ORDERED: LIDOCAINE 1% MDV 20ML VIAL As Ordered ONE (04:15)
[2022-01-09] MEDS ORDERED: HOME MED LIST COMPLETE! XX SCH (04:15)
[2022-01-09] MEDS ORDERED: MORPHINE 2 MG/ML 1ML VIAL As Ordered ONE (04:31)
[2022-01-09] MEDS ORDERED: MORPHINE 2 MG/ML 1ML VIAL IV ONE (05:00)
[2022-01-09] MEDS ORDERED: VANCOMYCIN HCL 1,000 MG, VIAL MATE ADAPTER 1 EACH in NS 250 ML IV ONE (05:00)
[2022-01-09] MEDS ORDERED: HEPARIN SOD (PORCINE) 5000UNITS/ML 1ML VIAL/SYRINGE SC SCH (06:00)
[2022-01-09] MEDS ORDERED: AMIODARONE HCL 150 MG in IV 1 EA IV SCH (06:00)
[2022-01-09] MEDS ORDERED: SODIUM BICARBONATE 8.4% INJ 50ML SYRINGE ONE (06:53)
[2022-01-09] MEDS ORDERED: EPINEPHrine 1MG/10ML SYRINGE 1.5IN ONE (06:53)
[2022-01-09] MEDS ORDERED: DEXTROSE 50% 50 ML SYRINGE ONE (06:53)
[2022-01-09] MEDS ORDERED: ATROPINE SULF 1MG/10ML SYRINGE (J0461) ONE (06:53)
[2022-01-09] MEDS ORDERED: SUCCINYLCHOLINE 100 MG/5 ML SYRINGE (J0330) ONE (06:54)
[2022-01-09] MEDS ORDERED: ETOMIDATE INJ 20MG/10ML VIAL ONE (06:54)
[2022-01-09] MEDS ORDERED: PANTOPRAZOLE 40MG VIAL IV SCH (09:00)
[2022-01-09] MEDS ORDERED: CHLORHEXIDINE GLUCONATE 0.12 % 15ML UDC (PERIDEX ORAL RINSE) MT SCH (09:00)
== END 2022-01-09 08:18 | disposition expired | DRG 201 ==
LOC: M ED 20:50 → M ED INP 01-09 01:49 → ENRESERV 01-09 02:51 → M ICU 01-09 03:09
PROVIDERS: ADMIT Internal Medicine; ATTEND Internal Medicine
PROC: 0BH17EZ Insertion of Endotracheal Airway into Trachea, Via Natural or Artificial Opening (ICD-10-PCS; 2022-01-08)
PROC: 5A1935Z Respiratory Ventilation, Less than 24 Consecutive Hours (ICD-10-PCS; principal; 2022-01-09)
PROC: 0W9930Z Drainage of Right Pleural Cavity with Drainage Device, Percutaneous Approach (ICD-10-PCS; 2022-01-09)
DX: I47.1 Supraventricular tachycardia (principal); I46.9 Cardiac arrest, cause unspecified; J96.00 Acute respiratory failure, unspecified whether with hypoxia or hypercapnia; J18.9 Pneumonia, unspecified organism; J81.1 Chronic pulmonary edema; K55.9 Vascular disorder of intestine, unspecified; Z94.84 Stem cells transplant status; E87.20 Acidosis, unspecified; J93.9 Pneumothorax, unspecified; I95.9 Hypotension, unspecified; I77.1 Stricture of artery; Z79.890 Hormone replacement therapy; Z79.899 Other long term (current) drug therapy; Z20.822 Contact with and (suspected) exposure to COVID-19; Z88.2 Allergy status to sulfonamides; Z88.6 Allergy status to analgesic agent; J45.909 Unspecified asthma, uncomplicated; Z85.6 Personal history of leukemia; K80.20 Calculus of gallbladder without cholecystitis without obstruction